=== PATIENT | female | born 1975 | race Two or more races ===

== ENCOUNTER 2016-08-12 16:03 | Outpatient (CLI) | payer SELFPAY ==
[~2016-08-12] VITALS: Ht 165.1 cm; Wt 73.9 kg
[2016-08-12 16:44] VITALS: Ht 165.1 cm; Wt 73.9 kg
[2016-08-12] MEDS ORDERED: CALC-143 PO (16:46)
[2016-08-12] MEDS ORDERED: PRENAT PO (16:46)
--- NOTE | 2016-08-12 17:31 | RADRPT ---
PROCEDURE: US OB CLINICAL INDICATION: NO PNC, size and dates TECHNIQUE: Multiple sonographic images of the pelvis were obtained. The images were reviewed on a PACS workstation. COMPARISON: None LMP: 11/30/2015 FINDINGS: The cervix is not well visualized. There is a single viable intrauterine gestation. Cardiac activity is present with 144 beats per minute. There is a vertex presentation. The placenta is fundal. There is no evidence for an abruption or placenta previa. There is a normal amount of amniotic fluid with an CEZAR = 11.1 cm. Measurements were made in order to determine age. The results are as follows (cm): BPD =8.97 HC =32.09 AC =32.30 FL =7.32 Estimated gestational age by ultrasound of approximately 36 weeks, 4 days. The estimated date of delivery by ultrasound is 09/05/2016. Estimated gestational age by LMP of approximately 36 weeks, 4 days. The estimated date of delivery by LMP is 09/05/2016. EFW = 2967 grams (53rd percentile) IMPRESSION: Single viable intrauterine gestation of approximately 36 weeks, 4 days . The estimated date of delivery is 09/05/2016 . Dating by ultrasound is consistent with dating by LMP. Normal CEZAR. Cephalic presentation. Estimated weight in the 53rd percentile. RPTAT: EE Physician Rama Date Time Electronically viewed and signed by Physician Rama on 08/12/2016 17:31 /
== END 2016-08-12 18:20 | disposition home or self-care (01) ==
LOC: OBT 16:03 → L-D 16:39 → OBT 18:20
DX: O09.33 Supervision of pregnancy with insufficient antenatal care, third trimester (principal); Z3A.36 36 weeks gestation of pregnancy
CPT/HCPCS: 76815; G0463